=== PATIENT | female | born 1955 | race Two or more races ===

== ENCOUNTER 2017-06-04 18:38 | Emergency (ER) | payer OTHER ==
[2017-06-04] MEDS ORDERED: DIAZEPAM 10 MG TABLET PO STA (18:52)
[2017-06-04] MEDS ORDERED: KETOROLAC TROMETHAMINE INJ 60 MG/2 ML VIAL IM ONE (19:00)
[2017-06-04] MEDS ORDERED: KETOROLAC TROMETHAMINE INJ 30 MG/ML VIAL ONE (19:02)
[2017-06-04] MEDS ORDERED: DIAZEPAM 10 MG TABLET ONE (19:02)
--- NOTE | 2017-06-04 19:10 | NUR ---
RECEIVED REPORT FROM KAYLI TIJERINA FOR KRISTIE. PT AT RADIOLOGY
--- NOTE | 2017-06-04 19:14 | NUR ---
PT RETURNED [facility].
--- NOTE | 2017-06-04 20:33 | NUR ---
Patient discharged to home in stable condition. Written and verbal after care instructions given. Patient verbalizes understanding of instruction. ambulatory with a steady gait. instructed not to drive. pt verbalize understanding. pt accompanied by family.
[2017-06-04 20:35] VITALS: BP 142/58
== END 2017-06-04 20:35 | disposition home or self-care (01) ==
LOC: ER 18:40
DX: M54.5 Low back pain (principal)
CPT/HCPCS: 72100-TC; A4606; J1885; Z7610